=== PATIENT | male | born 1965 | race Caucasian/White ===

== ENCOUNTER → 2016-11-01 | Outpatient (CLI) | payer OTHER ==
--- NOTE | 2016-11-04 08:52 | SLEEPCENT ---
DATE OF PROCEDURE: 11/01/2016 ORDERED BY: Sunshine Dee INTERPRETATION: Nocturnal polysomnography was performed due to concern for the obstructive sleep apnea syndrome in this patient with a history of excessive somnolence and snoring. 7 hours and 59 minutes of data were reviewed. There were 438 minutes of sleep identified. Sleep latency was somewhat short at 5.5 minutes. Rapid eye movement (REM) latency was normal at 75 minutes. Sleep architecture was fairly good with four REM periods. Overall sleep efficiency was 93.7%. The patient's electrocardiogram (EKG) showed a sinus rhythm with an average heart rate of 60 beats per minute. Some rate variability was seen surrounding respiratory events. Rate ranged 52 to 98. Electroencephalogram (EEG) showed fairly normal waveforms for awake and sleep. There were only 18 respiratory events identified of 10 seconds in duration or greater for an apnea-hypopnea index of 2.5. Some snoring was noted significantly in the mid portion of the study. Respiratory-related arousals occurred only 2.2 times per hour with minimal limb activity. Limb movement arousal index 3.6. Oxygen saturations remained 90+ throughout the test. IMPRESSION: Normal nocturnal polysomnography with snoring. RECOMMENDATION: The short sleep latency is on occasion seen in a sleep lab environment. However, further consideration of other disorders resulting in excessive somnolence may wish to be pursued. Copy To: Dr. Conrad
== END ==
LOC: M SLEEP 19:52
PROVIDERS: ATTEND Nurse Practitioner Adult Health
DX: G47.30 Sleep apnea, unspecified (principal)